=== PATIENT | male | born 1950 | race Caucasian/White ===

== ENCOUNTER 2025-06-02 12:08 | Emergency (ER) | payer OTHER, SELFPAY ==
[2025-06-02 12:13] VITALS: BP 136/69
[2025-06-02 12:31] VITALS: BP 139/66
[2025-06-02 12:42] LABS: Hematocrit 36.1 % (39.0-52.0); Hemoglobin 11.9 g/dL (13.0-18.0); Mean Corp Hgb Conc. 33.0 g/dL (33.0-37.0); Mean Corpuscular Volume 84.5 fL (80.0-94.0); Nucleated Red Blood Cells % 0 % (-); Platelet Count 318 10^3/uL (130-400); Red Cell Dist. Width 13.7 % (11.5-14.5)
[2025-06-02 12:53] LABS: ALT (SGPT) 32 U/L (0-50); AST (SGOT) 26 U/L (17-59); Albumin 4.1 g/dl (3.5-5.0); Alkaline Phosphatase 124 U/L (38-126); Blood Urea Nitrogen 38 mg/dl (9-20); Calcium 9.5 mg/dl (8.4-10.2); Carbon Dioxide 21 mmol/L (22-30); Chloride 109 mmol/L (98-107); Glucose 106 mg/dl (70-99); Potassium 5.2 mmol/L (3.5-5.1); Sodium 139 mmol/L (135-145); Total Protein 6.9 g/dl (6.3-8.2); eGFR 48.55
[2025-06-02 13:00] VITALS: BP 145/65
--- NOTE | 2025-06-02 13:27 | ED.GENMED ---
History of Present Illness
General
Chief Complaint: Extremity Pain (non-traumatic)
Source: patient and family
Exam Limitations: none
Time Seen by Provider: 06/02/25 12:39
Nursing documentation reviewed up to this point in time: agreed with
History of Present Illness
History of Present Illness:
74-year-old male sent here after evaluation by urgent care. He has a history of HTN, NIDDM and cholecystectomy. Daughter at bedside is helping to translate as he is Tongan-speaking. She states he has developed pain in all of his joints of his
body over the past week, pain now 7/10 and unrelieved with Tylenol, last dose 3 hours ago. Last week, he felt well. There has been no fever or chills, no chest pain, shortness of breath or abdominal pain. There has been no nausea vomiting
diarrhea or constipation. Denies headache or visual changes.. She states typically, he is constantly outside working around the yard and is very active.
Past History
Past History
ED Past Medical History: HTN and NIDDM
ED Past Surgical History: Cholecystectomy and Urological
Social History
Tobacco: Non-smoker
Personal:
Living: with family
Employment: Retired
Review of Systems
Review of Systems
Allergies reviewed?: Yes
All Other Systems: ROS reviewed and negative except as documented in HPI and ROS
Phy Exam
Physical Exam
Physical Exam:
GENERAL: No acute distress. A&Ox3.
CONSTITUTIONAL: Afebrile.
EYES: clear, conjunctivae normal
ENMT: moist mucus membranes, Pharynx nl
RESPIRATORY: Regular respirations, nonlabored, lungs clear.
CARDIOVASCULAR: Regular rate and rhythm, no murmurs, no rubs.
GI: Soft, nontender, normal BS
MUSCULOSKELETAL: No spinal bony tenderness. No swelling, redness or warmth of joints or muscles. Unable to move both arms upward more than 50% due to pain in shoulders, elbows, also subjective pain in both hands. Pain with flexion of knees. Moves
with ease. Well perfused.
SKIN: Warm, dry, pink
PSYCH: Normal mood and affect. Well kept, interactive and appropriate
NEUROLOGIC: Awake, alert and oriented. No focal neurological deficits
Course
Orders/Labs/Results
Orders:
Orders
06/02/25 12:34
C-Reactive Protein Urgent
Comment: ADD ON
Complete Blood Count/With Diff Urgent
Comprehensive Metabolic Panel Urgent
Erythrocyte Sed Rate Urgent
Comment: ADD ON
Lyme Progressive Urgent
Comment: ADD ON
NT-proBNP Urgent
06/02/25 13:23
Add On- LAB Urgent
Tests Added?: CRP, Sed rate, Lyme Titer
06/02/25 13:41
Ehrlichia/Anaplasma by PCR [S] Urgent
Blood Parasites Urgent
JEMAL Source: Blood/Venous
Specimen Description:
06/02/25 14:03
Urinalysis Urgent
Date Specimen was Collected: 06/02/25
Time Specimen was Collected: 14:02
Urine Microscopic Urgent
Date Specimen was Collected: 06/02/25
Time Specimen was Collected: 14:02
06/02/25 15:08
0.9% Sodium Chloride 500 ml [Nss] 500 ml IV BOLUS
06/02/25 15:09
Dexamethasone Sod Phosphate [Decadron] 10 mg IV NOW STA
06/02/25 15:13
Fosfomycin [Monurol] 3 gm PO ONCE ONE
Abnormal Lab Results
06/02/25 06/02/25
12:34 14:03
RBC 4.27 L 10^6/uL
(4.70-6.10)
Hgb 11.9 L g/dL
(13.0-18.0)
Hct 36.1 L %
(39.0-52.0)
Abs Immat Gran (auto) 0.1 H 10^3/uL
(0-0.05)
Absolute Monos (auto) 0.9 H 10^3/uL
(0.1-0.6)
Immature Gran % 1.9 H %
(0-0.5)
Monocytes % 11.7 H %
(1.7-9.3)
ESR 63 H mm/hour
(0-20)
Potassium 5.2 H mmol/L
(3.5-5.1)
Chloride 109 H mmol/L
(98-107)
Carbon Dioxide 21 L mmol/L
(22-30)
BUN 38 H mg/dl
(9-20)
Creatinine 1.5 H mg/dL
(0.7-1.3)
Glucose 106 H mg/dl
(70-99)
C-Reactive Protein 147.40 H mg/L
(0.0-10.00)
Ur Leukocyte Esterase 2+ A
(Negative)
Urine WBC 40-50 A /HPF
(0-5)
Urine Bacteria Few A
(Negative)
06/02/25 12:34
06/02/25 12:34
Vital Signs
Initial and Last Documented VS:
Initial Vital Signs
Temp Pulse Resp BP Pulse Ox
98.2 F 80 16 136/69 98
06/02/25 12:13 06/02/25 12:13 06/02/25 12:13 06/02/25 12:13 06/02/25 12:13
Last Documented Vital Signs
Temp Pulse Resp BP Pulse Ox
98.2 F 77 21 145/65 98
06/02/25 12:13 06/02/25 15:30 06/02/25 13:15 06/02/25 13:00 06/02/25 13:34
Last Inserter consulted with Physician
Last Inserter consulted with physician?: Yes
Name of Physician Consulted: Anil
MDM/Problems Addressed
Differential Diagnosis Includes:
Reactive arthritis, Lyme's, Polymyalgia rheumatica
MDM/Problems Addressed:
74-year-old male sent here after evaluation by urgent care. He has a history of HTN, NIDDM and cholecystectomy. Daughter at bedside is helping to translate as he is Tongan-speaking. She states he has developed pain in all of his joints of his
body over the past week, pain now 7/10 and unrelieved with Tylenol, last dose 3 hours ago. Last week, he felt well. There has been no fever or chills, no chest pain, shortness of breath or abdominal pain. There has been no nausea vomiting
diarrhea or constipation. Denies headache or visual changes.. She states typically, he is constantly outside working around the yard and is very active.
Afebrile, limited ROM due to pain. Pain is equal throughout (knees just as painful and shoulders)
No sign of Giant Cell Arteritis
3:00 p.m.
CBC with no clinically significant abnormality
CMP with no clinically significant abnormality
ESR 63
CRP elevated 147.40
BNP WNL
U/A: WBC 40-50, 2+ leukocytes, few bacteria no squamous cells. Culture pending
Plan: Steroid taper for the joint pains, treat UTI with one dose Fosfomycin, F/u with PCP next week. Referral to Rheumatology provided
Rx for steroid taper sent to pt pharmacy
Case discussed with Dr. Ma who agrees with assessment and plan
All the instructions reviewed with pt and , all questions answered with the help of Soraya Gonzalez who speaks Amharic/Tongan. Daughter speaks and understands Cymro rather well also.
*Pulse Oximetry
SaO2: 98
Oxygen Mode of Delivery: Room air
Patient hypoxic: no
*Critical Care Note
Total Time (30-74mins, 75-104mins- exclusive of procedures): Not Applicable
ED Attending Note
-
Portions of this chart may have been created with voice recognition software.� Occasional wrong word or��sound alike� substitutions may have occurred due to the inherent limitations of voice recognition software.
Discharge Plan
Departure
Patient Disposition: Home (Routine Discharge)
Date of Disposition: 06/02/25
Time of Disposition: 15:27
Patient with high blood pressure during this ER visit?: No
Condition: Fair
Discharge Problem:
Myalgia, Acute UTI
Prescriptions:
New
prednisone 10 mg Tablet
See Rx Instructions .ROUTE .COMPLEX Qty: 30 0RF
Rx Instructions:
Take By Mouth:
40 mg daily x3 days, 30 mg daily x3 days,
20 mg daily x3 days, 10 mg daily x3 days.
No Action
tamsulosin 0.4 mg Capsule
0.4 mg PO DAILY
pantoprazole 40 mg Tablet,Delayed Release (Dr/Ec)
40 mg PO DAILY
metformin 1,000 mg Tablet
1,000 mg PO DAILY
aspirin 81 mg Tablet
81 mg PO DAILY
rosuvastatin 5 mg Tablet
5 mg PO DAILY
nebivolol 5 mg Tablet
5 mg PO DAILY
Referrals:
Nitin Jordan MD [Active, Rheumatology] - Next open appointment
Monroe Chong MD [Family Provider, Family Practice] - Follow up in 5-7 days
Activity Restrictions/Additional Instructions:
As we discussed, you have a urinary tract infection. You were given an antibiotic called fosfomycin. You only need 1 dose of this drug and you should have your urine rechecked in 7 to 10 days by your doctor to be sure it is cleared
You also received a steroid called Decadron here today for the pain and inflammation in your joints. Steroids can take 2-3 days to take effect so you may not feel much better for 2-3 days.
You may continue Tylenol if it helps.
Follow up with your doctor next week.
I have provided you the name of a joint doctor or [facility] to use if needed.
If any of your other tests come back positive Lyme, other Tick borne diseases, we will contact you.
Interventions
Interventions:
*Risk Screen - Suicide Last Done: 06/02/25 12:43
*General Assessment Last Done: 06/02/25 12:43
*Neglect/Abuse Screening Last Done: 06/02/25 12:43
*ED- Fall Risk Assessment Last Done: 06/02/25 12:43
ED-Skin Assessment Last Done: 06/02/25 13:03
ED-Peripheral Vascular Assessment Last Done: 06/02/25 13:01
ED-Musculoskeletal Assessment Last Done: 06/02/25 13:01
Discharge Date and Time
Print Language: Ukranian
[2025-06-02 14:32] LABS: Urine Character Clear (Clear)
[2025-06-02 14:42] LABS: C-Reactive Protein 147.40 mg/L (0.0-10.00)
[2025-06-02 14:48] LABS: Urine Squamous Cell 0-2 /LPF (Few); Urine White Cell 40-50 /HPF (0-5)
[2025-06-02 14:49] LABS: Urine Red Blood Cell 0-2 /HPF (0-2)
[2025-06-02] MEDS: NSS 500 IV (15:34)
[2025-06-02] MEDS: MONUROL 3 GM PO (15:34)
[2025-06-02] MEDS: DECADRON 10 MG IV (15:34)
[2025-06-05 15:57] LABS: Lyme Antibody Screen, EIA Negative (Negative)
== END 2025-06-02 17:07 | disposition home or self-care (01) ==
LOC: EMR 12:08
PROVIDERS: Registered Nurse; EMERGENCY PHYSICIAN Student in an Organized Health Care Education/Training Program; FAMILY PHYSICIAN Family Medicine
DX: N39.0 Urinary tract infection, site not specified (principal); M79.10 Myalgia, unspecified site; I10 Essential (primary) hypertension; E11.9 Type 2 diabetes mellitus without complications; Z90.49 Acquired absence of other specified parts of digestive tract
CPT/HCPCS: 96374; 96361; 99284; 80053; 81003; 81015; 83880; 85025; 85652; 86140; 86618; 87015; 87207; 87468; 87484; 87798